=== PATIENT | female | born 1995 | race African-American/Black ===

== ENCOUNTER 2023-11-30 19:14 | Emergency (ER) | payer MEDICAID, SELFPAY ==
[2023-11-30 19:18] VITALS: BP 114/63; PULSE 60; RESP 20; TEMP 36.9; O2SAT 99
--- NOTE | 2023-11-30 20:43 | ED.DENTAL ---
HPI - Dental/Oral General Chief complaint: Headache Stated complaint: JAW PAIN Time Seen by Provider: 11/30/23 20:27 Source: patient Mode of arrival: ambulatory Limitations: no limitations History of Present Illness HPI Narrative: patient presents with left lower tooth pain as well as jaw pain. She states it is starting to become headache and her left ear feels muffled. She denies any fevers but has having chills. She is visiting from out of town and will be returning to [place] tomorrow where her dentist is. She has been taking a significant amount of pain medication and states she has been taking 5 500 mg tablets of Tylenol every 5 hours as well as multiple 500 mg tablets (?) of ibuprofen every 3-4 hours. she has been doing this for past 2 weeks. She does endorse some ringing in her ears she states this is chronic. Related Data Allergies Allergy/AdvReac Type Severity Reaction Status Date / Time No Known Allergies Allergy Verified 11/30/23 19:25 [facility] Social History Social History (Updated 11/30/23 @ 21:24 by Shahida Ward MD) Additional living arrangements comments: Lives in [place], [place] Occupation/Education: unemployed Additional occupation/education comments: Job interview this week back home Exam Narrative: GENERAL: Well-appearing, well-nourished, and in no acute distress. HEAD: Normocephalic, atraumatic. EYES: Non injected, non icteric ENT: Nares clear, no rhinorrhea or epistaxis. Bilateral tympanic membranes visualized and without erythema or effusion. Broken/fractured tooth with dental caries #19 (first molar) which is tender to palpation. . Mild hyperemia along gums but without periapical abscess. NECK: Supple. CHEST: Speaking in complete sentences No respiratory distress. HEART: Regular rate and rhythm. . ABDOMEN: Soft, nondistended. EXTREMITIES: Normal range of motion. No edema. SKIN: Warm, dry, no rash. NEURO: No focal deficits. Alert and oriented x3. PSYCH: Normal mood and affect. Course Vital Signs Vital signs: Vital Signs Temperature 98.4 F 11/30/23 19:18 Pulse Rate 60 11/30/23 19:18 Respiratory Rate 20 11/30/23 19:18 Blood Pressure 114/63 11/30/23 19:18 Pulse Oximetry 99 11/30/23 19:18 Oxygen Delivery Room Air 04/02/24 19:18 Temperature 98.4 F 11/30/23 19:18 Pulse Rate 60 11/30/23 19:18 Respiratory Rate 20 11/30/23 19:18 Blood Pressure 114/63 11/30/23 19:18 Pulse Oximetry 99 11/30/23 19:18 Oxygen Delivery Room Air 11/30/23 19:18 Procedures Nerve Block Nerve Block 1: Nerve block date: 11/30/23 Local Anesthetic: lidocaine 1% Amount of anesthesia used (mL): 7 Side: left Intraoral Nerve Block: inferior alveolar Procedure Successful: Yes Patient Tolerated Procedure: well and no complications Nerve Block 2: Nerve block date: 11/30/23 Local Anesthetic: lidocaine 1% Amount of anesthesia used (mL): 3 Side: left Intraoral Nerve Block: mental Additional Comments: For gingiva MDM - Dental/Oral MDM Narrative Medical decision making narrative: Patient presents with left lower tooth pain which is also becoming jaw pain and headache some left ear muffled sensation. She denies any fevers but has been having chills. She does endorse significant amount of analgesic pain medication intake the past 2 weeks. In the emergency department they are afebrile with vital signs within normal limits. Will administer an opiate as well as 1st dose of Augmentin with the rest of the prescription to follow. Will obtain labs in addition to acetaminophen and salicylate level. Labs unremarkable. Patient is amenable to receiving nerve block And is performed as above. patient tolerated procedure well and is discharged in stable condition with paper prescription for antibiotics and Education/ counseling on appropriate pain medication dosing. Differential Di
[2023-11-30] MEDS: AMOXICILLIN/CLAVULANATE K 875-125 MG TAB 1 TABLET PO (21:25)
[2023-11-30] MEDS: MORPHINE SULFATE (*CRX) 2 MG/ML INJ IV PUSH (21:26)
[2023-11-30 21:34] LABS: Basophils Percent Auto 0.2 % (0.2-1.2); Eosinophils Percent Auto 0.4 % (0-4.4); Hematocrit 38.9 % (37.0-47.0); Hemoglobin 13.3 g/dL (12.0-15.0); Immature Granulocyte Absolute 0.02 K/mm3 (0.00-0.031); Immature Granulocyte Percent A 0.2 % (0-0.5); Lymphocytes Absolute Auto 2.33 K/mm3 (0.9-3.2); Lymphocytes Percent Auto 24.7 % (18.3-44.2); Mean Corpuscular HGB Conc 34.2 g/dl (32-36); Mean Corpuscular Hemoglobin 31.7 pg (26-34); Mean Corpuscular Volume 92.6 fl (80-100); Monocytes Absolute Auto 0.5 K/mm3 (0.1-0.6); Monocytes Percent Auto 5.1 % (2.6-8.5); Neutrophils Absolute Auto 6.5 K/mm3 (1.3-6.7); Neutrophils Percent Auto 69.4 % (45.5-73.1); Platelet Count Result 261 k/mm3 (150-375); Red Cell Distribution Width 12.4 % (11.5-14.5); White Blood Count 9.4 K/mm3 (4.5-10.0)
[2023-11-30 21:43] LABS: Alanine Aminotransferase 32 U/L (6-35); Albumin Level 4.4 g/dL (3.5-5.1); Alkaline Phosphatase 61 U/L (38-126); Anion Gap 5 mmol/L (4-12); Aspartate Amino Transferase 30 U/L (14-36); Bilirubin,Total 0.6 mg/dL (0.2-1.3); Blood Urea Nitrogen 10 mg/dL (7-17); Calcium 9.3 mg/dL (8.4-10.2); Carbon Dioxide 27 mmol/L (22-30); Chloride 105 mmol/L (98-107); Estimated CRCL calculation 128 ml/min; Estimated Glomerular Filt Rate > 60; Glucose 101 mg/dL (65-110); Potassium 3.9 mmol/L (3.4-5.0); Sodium 137 mmol/L (137-145)
[2023-11-30 21:46] LABS: Prothrombin Time 13.2 Seconds (11.1-14.7)
[2023-11-30 21:47] LABS: Partial Thromboplastin Time 35.5 Seconds (22.3-36.8)
[2023-11-30 22:06] LABS: Acetaminophen < 10 ug/mL (10-30)
[2023-11-30 22:08] LABS: Salicylate < 1.0 mg/dL (2-20)
[2023-11-30 22:49] VITALS: BP 151/79; PULSE 62; RESP 19; TEMP 36.7; O2SAT 100
== END 2023-11-30 22:51 | disposition home or self-care (01) ==
PROVIDERS: Emergency Provider Student in an Organized Health Care Education/Training Program
DX: K02.9 Dental caries, unspecified (principal)
CPT/HCPCS: 36415; 64999; 80053; 80307; 85025; 85610; 85730; 96374; 99284; A9270; J2270